=== PATIENT | female | born 2005 | race Caucasian/White ===

== ENCOUNTER 2024-08-04 11:36 | Observation (INO) | payer BC, OTHER ==
[2024-08-04 12:30] VITALS: BP 127/60; PULSE 102; RESP 16; O2SAT 97
[2024-08-04 13:01] LABS: Hematocrit 35.8 % (34.1-44.9); Hemoglobin 11.9 g/dL (11.2-15.7); Mean Cell Volume 85.9 fL (79.4-94.8); Mean Corpuscular Hemoglobin 28.5 pg (25.6-32.2); Mean Corpuscular Hgb Concent. 33.2 g/dL (32.2-35.5); Platelet Count 238 x10^3/uL (182-369); Red Blood Count 4.17 x10^6/uL (3.93-5.22); Red Cell Distribution Width 13.5 % (11.7-14.4)
[2024-08-04 13:10] LABS: Amphetamine,Urine NEGATIVE (NEGATIVE); Barbiturate,Urine NEGATIVE (NEGATIVE); Benzodiazepine,Urine NEGATIVE (NEGATIVE); Cocaine,Urine NEGATIVE (NEGATIVE); Methadone,Urine NEGATIVE (NEGATIVE); Opiate,Urine NEGATIVE (NEGATIVE); PCP,Urine NEGATIVE (NEGATIVE); THC,Urine NEGATIVE (NEGATIVE)
--- NOTE | 2024-08-04 13:10 | PCM.SSS ---
History of Present Illness - Chief Complaint Chief Complaint: OB Check History of Present Illness: is a 18 year old female at 33 4/7wks EGA who came to labor and delivery after vomiting three times this morning. she had some sharp/burning pain in her epigastrium when she woke up and just didn't feel well, went to work and developed vomiting, first was normal but next two times were blood tinged. she denies nausea currently, has no pain. she has had some reflux symptoms in termittently, no vaginal bleeding or LOF, good movement. - Review of Systems Constitutional: No Fever, No Chills Respiratory: No Cough, No Short Of Breath Cardiac: No Chest Pain, No Edema, No Syncope Abdominal/Gastrointestinal: Abdominal Pain, Nausea, Vomiting, Other (all previo us symptoms are currently resolved) Genitourinary Symptoms: No Dysuria Skin: No Rash All Other Systems: Reviewed and Negative Medications & Allergies Home Medications: Home Medication List Famotidine [Pepcid] 40 mg PO HS #30 tablet 08/04/24 [Rx] Ferrous Sulfate 325 mg PO DAILY 08/04/24 [History Confirmed 08/04/24] Pnv No.95/Ferrous Fum/Folic AC [ Vitamins Tablet] 1 tab PO HS 08/04/24 [History Confirmed 08/04/24] Allergies/Adverse Reactions: Allergies Allergy/AdvReac Type Severity Reaction Status Date / Time No Known Drug Allergies Allergy Unverified 08/04/24 12:10 - Social History Smoking Status: Never smoker Exposure to second hand smoke: No - Social Determinants of Health Will the patient participate in the screening: Yes Do you worry about a steady place to live?: No Do you have any problems with any of the following?: No known problems In the past 12 months,have you had to go without utilities?: No Have you or anyone in your house had to go without enough: No Transportation Issues: No Has anyone in your support network made you feel unsafe?: No Does the patient want assistance with any of the above?: No - Physical Exam Vital Signs: Vital Signs - 24 hr Pulse Resp BP Pulse Ox 08/04/24 12:36 102 H 16 97 08/04/24 12:12 102 H 16 127/60 97 General Appearance: no apparent distress Neurologic Exam: alert, oriented x 3 Respiratory Exam: normal breath sounds, lungs clear, No respiratory distress Cardiovascular Exam: regular rate/rhythm, normal heart sounds, normal peripheral pulses Gastrointestinal/Abdomen Exam: soft, normal bowel sounds, other (gravid FHT 130's cat 1, toco quiet), No tenderness, No mass Results - Labs Lab/Micro Results: Lab Results-Last 24 Hours 08/04/24 Range/Units 12:55 WBC 9.0 (3.98-10.04) x10^3/uL RBC 4.17 (3.93-5.22) x10^6/uL Hgb 11.9 (11.2-15.7) g/dL Hct 35.8 (34.1-44.9) % MCV 85.9 (79.4-94.8) fL MCH 28.5 (25.6-32.2) pg MCHC 33.2 (32.2-35.5) g/dL RDW 13.5 (11.7-14.4) % Plt Count 238 (182-369) x10^3/uL MPV 9.0 L (9.4-12.3) fL Assessment/Plan (1) Nausea & vomiting Current Visit: Yes Status: Acute Assessment & Plan: resolved at this time, had zofran at home and advised she can use that PRN Code(s): R11.2 - NAUSEA WITH VOMITING, UNSPECIFIED (2) Hematemesis Current Visit: Yes Status: Acute Assessment & Plan: suspect reflux/gastritis as contributing to her vomiting suddenly this morning. will add pepcid at bedtime, discussed avoiding eating before bed. hemoglobin 11.9 currently and was 11.2 on last check, no signs of active bleeding Code(s): K92.0 - HEMATEMESIS (3) Current Visit: Yes Status: Acute Code(s): Z34.90 - ENCNTR FOR SUPRVSN OF NORMAL , UNSP, UNSP TRIMESTER Hospital Summary - Vitals & Intake/Output Vital Signs: Vital Signs Temperature Pulse Rate 102 H 08/04/24 12:36 Respiratory Rate 16 08/04/24 12:36 Blood Pressure 127/60 08/04/24 12:12 O2 Sat by Pulse Oximetry 97 08/04/24 12:36 Intake & Output: Intake & Output 08/02/24 08/03/24 08/04/24 08/05/24 11:59 11:59 11:59 11:59 Weight 81.647 kg - Lab Result Diagrams: 08/04/24 12:55 Lab Results-Last 24 Hrs: Lab Results-Last 24 Hours 08/04/24 Range/Units 12:55 WBC 9.0 (3.98-10.04) x10^3/uL RBC 4.17 (3.93-5.22) x10^6/uL Hgb 11.9 (11.2-15.7) g/dL Hct 35.8 (34.1-44.9) % MCV 85.9 (79.4-94.8) fL MCH 28.5 (25.6-32.2) pg MCHC 33.2 (32.2-35.5) g/dL RDW 13.5 (11.7-14.4) % Plt Count 238 (182-369) x10^3/uL MPV 9.0 L (9.4-12.3) fL - Discharge Disposition: Home, Self-Care Condition: Stable Prescriptions: New Famotidine [Pepcid] 40 mg PO HS #30 tablet Continue Pnv No.95/Ferrous Fum/Folic AC [ Vitamins Tablet] 1 tab PO HS Ferrous Sulfate 325 mg PO DAILY Additional Instructions: avoid eating within 2 hours of bedtime at night. take pepcid in the evening, avoid caffeine. f/u as scheduled in 2 days Follow up with: AMNA RICKS MD [Primary Care Provider] - (keep appointment on as scheduled)
[2024-08-04 13:14] LABS: ALBUMIN 3.3 g/dL (3.5-5.0); ANION GAP 13.8 MEQ/L (5-15); BILIRUBIN,TOTAL 0.4 mg/dL (0.2-1.3); Calcium 8.7 mg/dL (8.4-10.2); Creatinine 1 0.57 mg/dL (0.52-1.04); EST GLOMERULAR FILTRATION RATE 133.3 ML/MIN; Potassium 3.6 mmol/L (3.5-5.1); Total Protein 6.5 g/dL (6.3-8.2)
[2024-08-04 13:18] LABS: Appearance Cloudy (Clear); Bilirubin Small (Negative); Blood Negative (Negative); Epithelial Cells Moderate /HPF (None Seen); Glucose, Urine 100 mg/dL (Negative); Ketones Trace (Negative); Leukocyte Esterase Small (Negative); Nitrite Negative (Negative); Ph 5.5 (4.6-8.0); Protein,Urine Dip 30 (Negative); RBC 0-2 /HPF (0-5); Specific Gravity >=1.030 (1.005-1.030)
[2024-08-04 13:19] LABS: Bacteria Moderate /HPF (None Seen)
== END 2024-08-04 13:50 | disposition home or self-care (01) ==
LOC: MED SURG 11:36
PROVIDERS: ADMIT Family Medicine; ATTEND Family Medicine
DX: Z34.03 Encounter for supervision of normal first pregnancy, third trimester (principal); Z3A.33 33 weeks gestation of pregnancy; K92.0 Hematemesis
CPT/HCPCS: 36415; 80053; 80307; 81001; 85027; 87086; G0378; G0379

== ENCOUNTER 2024-09-07 23:01 | Observation (INO) | payer BC, OTHER ==
[2024-09-07 23:25] VITALS: BP 130/67; PULSE 121; RESP 20; TEMP 98; O2SAT 96
[2024-09-07 23:26] LABS: Appearance Clear (Clear); Bacteria Rare /HPF (None Seen); Bilirubin Small (Negative); Blood Negative (Negative); Epithelial Cells Few /HPF (None Seen); Glucose, Urine Negative (Negative); Ketones Trace (Negative); Leukocyte Esterase Trace (Negative); Nitrite Negative (Negative); Protein,Urine Dip 30 (Negative); Specific Gravity >=1.030 (1.005-1.030)
[2024-09-08] LABS: Amphetamine,Urine NEGATIVE (NEGATIVE); Barbiturate,Urine NEGATIVE (NEGATIVE); Benzodiazepine,Urine NEGATIVE (NEGATIVE); Cocaine,Urine NEGATIVE (NEGATIVE); Methadone,Urine NEGATIVE (NEGATIVE); Opiate,Urine NEGATIVE (NEGATIVE); PCP,Urine NEGATIVE (NEGATIVE); THC,Urine NEGATIVE (NEGATIVE)
== END 2024-09-08 02:57 | disposition home or self-care (01) ==
LOC: OB 23:01
PROVIDERS: ADMIT Family Medicine; ATTEND Family Medicine
DX: Z34.03 Encounter for supervision of normal first pregnancy, third trimester (principal); Z3A.38 38 weeks gestation of pregnancy
CPT/HCPCS: 80307; 81001; 87086; G0378; G0379

== ENCOUNTER 2024-09-13 01:40 | Observation (INO) | payer BC, OTHER ==
[2024-09-13 02:14] VITALS: BP 130/80; PULSE 92; RESP 18; TEMP 97.7; O2SAT 97
== END 2024-09-13 03:10 | disposition home or self-care (01) ==
LOC: OB 01:40
PROVIDERS: ADMIT Family Medicine; ATTEND Family Medicine
DX: Z34.03 Encounter for supervision of normal first pregnancy, third trimester (principal); Z3A.39 39 weeks gestation of pregnancy
CPT/HCPCS: 59025; 99213; G0378; G0379

== ENCOUNTER 2024-09-14 09:06 | Inpatient (IN) | payer BC, OTHER ==
[2024-09-14] MEDS ORDERED: BRETHINE 1 MG/ML SQ PRN (14:09)
[2024-09-14 17:49] LABS: Absolute Neutrophil Ct (ANC) 6.87 x10^3/uL (1.56-6.13); BASOPHIL % 0.3 % (0.1-1.2); Basophil (Absolute #) 0.03 x10^3/uL (0.01-0.08); Eosinophil % 0.2 % (0.7-5.8); Eosinophil (Absolute #) 0.02 x10^3/uL (0.04-0.36); Hematocrit 38.4 % (34.1-44.9); Hemoglobin 12.9 g/dL (11.2-15.7); IMMATURE GRAN # 0.05 x10^3u/L (0.001-0.031); IMMATURE GRAN % 0.5 % (0.001-0.429); Lymphocyte (Absolute #) 2.25 x10^3/uL (1.18-3.74); Lymphocytes % 22.5 % (19.3-51.7); Mean Cell Volume 84.8 fL (79.4-94.8); Mean Corpuscular Hemoglobin 28.5 pg (25.6-32.2); Mean Corpuscular Hgb Concent. 33.6 g/dL (32.2-35.5); Mean Platelet Volume 10.6 fL (9.4-12.3); Monocyte (Absolute #) 0.79 x10^3/uL (0.24-0.86); Monocytes % 7.9 % (4.7-12.5); Neutrophil % 68.6 % (34.0-71.1); Platelet Count 244 x10^3/uL (182-369); Red Blood Count 4.53 x10^6/uL (3.93-5.22); Red Cell Distribution Width 14.2 % (11.7-14.4)
[2024-09-14 18:28] LABS: ABO TYPING A; Antibody Screen NEGATIVE (NEGATIVE); RH TYPING POSITIVE
[2024-09-14] MEDS: CYTOTEC PO SCH (18:30)
[2024-09-14 20:05] LABS: Amphetamine,Urine NEGATIVE (NEGATIVE); Barbiturate,Urine NEGATIVE (NEGATIVE); Benzodiazepine,Urine NEGATIVE (NEGATIVE); Cocaine,Urine NEGATIVE (NEGATIVE); Methadone,Urine NEGATIVE (NEGATIVE); Opiate,Urine NEGATIVE (NEGATIVE); PCP,Urine NEGATIVE (NEGATIVE); THC,Urine NEGATIVE (NEGATIVE)
[2024-09-15] MEDS ORDERED: Zofran 4 MG/2 ML VIAL IV PRN (04:12)
[2024-09-15] MEDS: STADOL 2 MG IV PRN (04:17)
[2024-09-15] MEDS ORDERED: Lactated Ringers 1,000 ML IV ONE (06:15)
[2024-09-15] MEDS: Lactated Ringers 1,000 ML IV SCH (06:21)
[2024-09-15] MEDS: OMNIPEN 2 GM*** 2 G in Sodium Chloride 100ML MINI-BAG PLUS 100 ML IV ONE (06:22)
[2024-09-15] MEDS ORDERED: FENTANYL 2 MCG-BUPIV 0.125%-NS 250 ML Epidur 250 ML EPIDURAL ONE (07:54)
[2024-09-15] MEDS ORDERED: Ephedrine Sulfate 50 MG/ML IV PRN (08:10)
[2024-09-15] MEDS: FENTANYL 2 MCG-BUPIV 0.125%-NS 250 ML Epidur 250 ML EPIDURAL SCH (09:19)
[2024-09-15] MEDS: PITOCIN 30 UNITS/ LR 500 ML 30 UNITS/500 ML PLAST..BAG IV SCH (09:20)
[2024-09-15] MEDS: OMNIPEN 1 GM*** 1 GM in Sodium Chloride 100ML MINI-BAG PLUS 100 ML IV SCH (10:17)
[2024-09-15] MEDS ORDERED: PITOCIN 30 UNITS/ LR 500 ML 30 UNITS/500 ML PLAST..BAG IV SCH (14:30)
[2024-09-15] MEDS ORDERED: Sensorcaine 0.25% 10 ML ONE (15:42)
[2024-09-15] MEDS ORDERED: Ambien 10 MG PO PRN (17:38)
[2024-09-15] MEDS ORDERED: Adacel Vial IM ONE (17:38)
[2024-09-15] MEDS ORDERED: Anucort-HC SUPPOSITORY PR PRN (17:38)
[2024-09-15] MEDS ORDERED: Mylicon 80MG PO PRN (17:38)
[2024-09-15] MEDS ORDERED: NORCO 5/325 MG PO PRN (17:38)
[2024-09-15] MEDS ORDERED: Dulcolax 10 MG SUPP PR PRN (17:38)
[2024-09-15] MEDS ORDERED: XYLOCAINE 1% HCL 20 ML MDV IJ PRN (19:20)
[2024-09-15] MEDS ORDERED: XYLOCAINE 1% HCL 20 ML MDV ONE (19:23)
[2024-09-15] MEDS: Dermoplast Spray TP PRN (22:20)
[2024-09-15] MEDS: TUCKS TP PRN (22:21)
[2024-09-15] MEDS: Lactated Ringers 1,000 ML IV ONE (23:11)
[2024-09-15 23:20] VITALS: O2SAT 98
[2024-09-16] MEDS: Docusate Sodium 100 MG PO SCH
[2024-09-16] MEDS: MOTRIN 400 MG PO PRN (00:03)
[2024-09-16] MEDS: TYLENOL EXTRA STRENGTH 500 MG PO PRN (00:03)
[2024-09-16 04:59] LABS: Absolute Neutrophil Ct (ANC) 13.99 x10^3/uL (1.56-6.13); BASOPHIL % 0.2 % (0.1-1.2); Basophil (Absolute #) 0.03 x10^3/uL (0.01-0.08); Eosinophil % 0.2 % (0.7-5.8); Eosinophil (Absolute #) 0.04 x10^3/uL (0.04-0.36); Hematocrit 33.4 % (34.1-44.9); Hemoglobin 11.2 g/dL (11.2-15.7); IMMATURE GRAN # 0.07 x10^3u/L (0.001-0.031); IMMATURE GRAN % 0.4 % (0.001-0.429); Lymphocyte (Absolute #) 1.38 x10^3/uL (1.18-3.74); Lymphocytes % 8.2 % (19.3-51.7); Mean Corpuscular Hemoglobin 29.2 pg (25.6-32.2); Mean Corpuscular Hgb Concent. 33.5 g/dL (32.2-35.5); Monocyte (Absolute #) 1.42 x10^3/uL (0.24-0.86); Monocytes % 8.4 % (4.7-12.5); Neutrophil % 82.6 % (34.0-71.1); Platelet Count 199 x10^3/uL (182-369); Red Blood Count 3.84 x10^6/uL (3.93-5.22); Red Cell Distribution Width 14.3 % (11.7-14.4); White Blood Count 16.9 x10^3/uL (3.98-10.04)
[2024-09-16] MEDS: LANSINOH 40 GM TOP PRN (05:19)
[2024-09-16] MEDS: CORTISONE 1% CREAM TP PRN (06:06)
[2024-09-16 08:44] LABS: RPR Non Reactive (Non Reactive)
[2024-09-16] MEDS: FERREX 150 PO SCH (11:11)
[2024-09-16 23:00] VITALS: RESP 18
--- NOTE | 2024-09-17 08:18 | PCM.DS ---
Discharge Summary Date of Admission: 09/15/24 09:06 Admitting Physician: AMNA RICKS Consults: Consults on Case 09/16/24 10:00 Navigation ONCE Primary Care Provider: AMNA RICKS Allergies Allergies No Known Drug Allergies Allergy (Verified 09/14/24 18:18) Hospital Summary - Hospital Course Hospital Course: patient induced electively at 39 wks, had an uncomplicated vaginal delivery with second degree perineal laceration repair. and doing great - Vitals & Intake/Output Vital Signs: Vital Signs Temperature 98.1 F 09/17/24 04:00 Pulse Rate 80 09/17/24 04:00 Respiratory Rate 18 09/17/24 04:00 Blood Pressure 119/72 09/17/24 04:00 O2 Sat by Pulse Oximetry 98 09/17/24 04:00 Intake & Output: Intake & Output 09/14/24 09/15/24 09/16/24 09/17/24 11:59 11:59 11:59 11:59 Intake Total 5500 85247 1600 Output Total 1500 Balance 5500 89720 1600 Weight 89.358 kg - Lab Result Diagrams: 09/16/24 04:06 Lab Results-Last 24 Hrs: Lab Results-Last 24 Hours 09/14/24 Range/Units 17:36 RPR Non Reactive (Non Reactive) Micro Results-Entire Visit: Microbiology 09/15/24 00:57 Urine Culture - Preliminary Catherized NO GROWTH TO DATE Discharge Exam General Appearance: no apparent distress Neurologic Exam: alert, oriented x 3 Respiratory Exam: normal breath sounds, lungs clear, No respiratory distress Cardiovascular Exam: regular rate/rhythm, normal heart sounds Gastrointestinal/Abdomen Exam: soft, No tenderness, No mass Extremity Exam: normal inspection, normal range of motion Skin Exam: normal color, warm, dry Final Diagnosis/Problem List - Final Discharge Diagnosis/Problem (1) Normal vaginal delivery Current Visit: Yes Status: Acute Code(s): O80 - ENCOUNTER FOR FULL-TERM UNCOMPLICATED DELIVERY - Discharge Disposition: Home, Self-Care Condition: Stable Prescriptions: Continue Pnv No.95/Ferrous Fum/Folic AC [ Vitamins Tablet] 1 tab PO HS Famotidine [Pepcid] 40 mg PO HS #30 tablet Discontinued Ferrous Sulfate 325 mg PO DAILY Follow up with: AMNA RICKS MD [Primary Care Provider] - 6 weeks
[2024-09-17 10:21] VITALS: BP 112/67; PULSE 79; TEMP 97.4
== END 2024-09-17 15:20 | disposition home or self-care (01) | DRG 807 ==
LOC: OB 09:06 → OBSVTOIN 09-15 09:06
PROVIDERS: ADMIT Family Medicine; ATTEND Family Medicine
PROC: 10E0XZZ Delivery of Products of Conception, External Approach (ICD-10-PCS; principal; 2024-09-15)
PROC: 0KQM0ZZ Repair Perineum Muscle, Open Approach (ICD-10-PCS; 2024-09-15)
DX: O70.1 Second degree perineal laceration during delivery (principal); Z37.0 Single live birth; O69.81X0 Labor and delivery complicated by cord around neck, without compression, not applicable or unspecified; Z3A.39 39 weeks gestation of pregnancy
CPT/HCPCS: 36415; 80307; 82947; 85025; 86592; 86850; 86900; 86901; 87086; G0378; G0379; J0290; J0595; J2590; A9270-GY